=== PATIENT | female | born 2000 | race Caucasian/White ===

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

== ENCOUNTER 2019-01-22 17:01 | Emergency (ER) | payer MEDICAID ==
[~2019-01-22] VITALS: Ht 165.1 cm; Wt 100.0 kg
[2019-01-22 17:12] VITALS: BP 124/72
[2019-01-22 17:48] LABS: URINE HCG POSITIVE (NEG)
== END 2019-01-22 18:10 ==
LOC: ER 17:01
DX: Z34.92 Encounter for supervision of normal pregnancy, unspecified, second trimester (principal); F17.200 Nicotine dependence, unspecified, uncomplicated; F12.90 Cannabis use, unspecified, uncomplicated; Z88.1 Allergy status to other antibiotic agents; Z88.0 Allergy status to penicillin; Z88.2 Allergy status to sulfonamides; Z88.8 Allergy status to other drugs, medicaments and biological substances
CPT/HCPCS: 81025; 99283

== ENCOUNTER 2019-10-06 16:46 | Emergency (ER) | payer MEDICAID ==
[~2019-10-06] VITALS: Ht 165.1 cm; Wt 88.0 kg
[2019-10-06] MEDS ORDERED: CEPH250T PO (18:24)
--- NOTE | 2019-10-06 18:26 | NUR ---
Patient resting comfortably in her room. Patient updated on POC.
[2019-10-06 18:44] VITALS: BP 128/60
== END 2019-10-06 18:45 | disposition home or self-care (01) ==
LOC: ER 16:47
DX: S50.861A Insect bite (nonvenomous) of right forearm, initial encounter (principal); L03.113 Cellulitis of right upper limb; F41.9 Anxiety disorder, unspecified; F32.9 Major depressive disorder, single episode, unspecified; Z86.14 Personal history of Methicillin resistant Staphylococcus aureus infection; F12.90 Cannabis use, unspecified, uncomplicated; Z88.1 Allergy status to other antibiotic agents; Z88.0 Allergy status to penicillin; Z88.2 Allergy status to sulfonamides; Z88.8 Allergy status to other drugs, medicaments and biological substances; Z79.899 Other long term (current) drug therapy; W57.XXXA Bitten or stung by nonvenomous insect and other nonvenomous arthropods, initial encounter; Y93.89 Activity, other specified; Y92.89 Other specified places as the place of occurrence of the external cause; Y99.8 Other external cause status
CPT/HCPCS: 99283